=== PATIENT | female | born 1955 | race African-American/Black ===

== ENCOUNTER 2018-12-30 16:29 | Emergency (ER) | payer OTHER ==
[~2018-12-30] VITALS: Ht 167.6 cm; Wt 95.0 kg
[~2018-12-30 16:29] MED LIST: ALBU18HF2 IH; ASPI-864 PO; CYCL5TAB PO; DOCU-150 PO; FLUT16SP15 BOTHNSTRLS; FURO20TA4 PO; GABA-290 PO; HYDR-3933 PO; LORA10TA7 PO; MELO-106 PO; OMEP20CA5 PO; OMEP20TA2 PO; OXYB5TAB11 PO; POTA10CA42 PO; POTA10TA15 PO; SERT-112 PO; SIMV40TA5 PO; SITA50TA3 PO; TRAZ-251 PO
[2018-12-30] MEDS ORDERED: MORPHINE SULFATE 4 MG/ML CPJ (NOT FOR IM USE) IV STA (17:41)
[2018-12-30] MEDS ORDERED: ONDANSETRON HCL 4MG/2ML INJ IV STA (17:41)
[2018-12-30 18:33] LABS: BASOPHILS % 0.9 % (0.0-2.0); EOSINOPHILS % 2.3 % (0.0-5.0); HEMATOCRIT. 37.8 % (36.0-48.0); HEMOGLOBIN. 12.3 g/dL (12.0-16.0); LYMPHOCYTES % 29.2 % (20.0-50.0); MEAN CORPUSCULAR HEMOGLOBIN 28.1 pg (28.0-32.0); MEAN CORPUSCULAR VOLUME 86.9 fL (81.0-99.0); MEAN PLATELET VOLUME 10.9 fl (7.4-10.4); MONOCYTES % 11.3 % (2.0-8.0); NEUTROPHILS % 56.3 % (40.0-76.0); PLATELET 133 x1000/uL (130-400); RED BLOOD CELL COUNT 4.35 mill/uL (4.2-5.4); RED CELL DISTRIBUTION WIDTH 14.1 % (11.6-14.6)
[2018-12-30 18:39] LABS: CHLORIDE 110 mEq/L (98-107)
[2018-12-30 18:42] LABS: PARTIAL THROMBOPLASTIN TIME 28.9 sec (23.4-31.0); PROTHROMBIN TIME 10.5 sec (9.6-11.0)
[2018-12-30 18:44] LABS: ETHANOL BLOOD < 10 mg/dL
[2018-12-31] VITALS: BP 125/71
== END 2018-12-31 00:12 | disposition short-term general hospital (02) ==
LOC: ER 16:29 → EDBEDREQSVC 20:53 → EDBEDREQ 20:53 → EDBEDREQTM 20:53 → ER 12-31 00:12 → CANBEDREQ 12-31 01:17
DX: M25.551 Pain in right hip (principal); J45.909 Unspecified asthma, uncomplicated; E11.9 Type 2 diabetes mellitus without complications; I10 Essential (primary) hypertension; E78.00 Pure hypercholesterolemia, unspecified; W05.0XXA Fall from non-moving wheelchair, initial encounter; Y93.89 Activity, other specified; Y92.9 Unspecified place or not applicable; Z88.2 Allergy status to sulfonamides; Z79.82 Long term (current) use of aspirin
CPT/HCPCS: 36415; 71045; 72192; 73502; 73700; 80053; 80320; 83690; 83880; 84484; 85025; 85610; 85730; 93005; 96374; 96375; 99285; J2270; J2405; G0480

== ENCOUNTER 2020-11-15 17:16 | Emergency (ER) | payer OTHER ==
[~2020-11-15] VITALS: Ht 167.6 cm; Wt 73.0 kg
[~2020-11-15 17:16] MED LIST changes: +OMEP20CA14 PO; -OMEP20CA5 PO; -OXYB5TAB11 PO; +OXYB5TAB16 PO; +SIMV-46 PO; -SIMV40TA5 PO
[2020-11-15] MEDS ORDERED: SODIUM CHLORIDE 0.9% 1,000 ML IV ONE (17:45)
[2020-11-15] MEDS ORDERED: PIPERACILLIN/TAZOBACTAM 3.375GM/50ML PREMIX IV ONE (17:45)
[2020-11-15 18:56] LABS: BASOPHILS % 0.8 % (0.0-2.0); EOSINOPHILS % 0.4 % (0.0-5.0); HEMATOCRIT. 40.4 % (36.0-48.0); HEMOGLOBIN. 13.6 g/dL (12.0-16.0); LYMPHOCYTES % 11.5 % (20.0-50.0); MEAN CORPUSCULAR VOLUME 86.3 fL (81.0-99.0); MONOCYTES % 11.2 % (2.0-8.0); NEUTROPHILS % 76.1 % (40.0-76.0); PLATELET 117 x1000/uL (130-400); RED BLOOD CELL COUNT 4.69 mill/uL (4.2-5.4); RED CELL DISTRIBUTION WIDTH 13.6 % (11.6-14.6)
[2020-11-15 19:05] LABS: CHLORIDE 100 mEq/L (98-107)
[2020-11-15] MEDS ORDERED: MORPHINE SULFATE 4 MG/ML CPJ (NOT FOR IM USE) IV ONE (20:00)
[2020-11-15] MEDS ORDERED: LACTATED RINGERS 1,000 ML IV SCH (20:00)
[2020-11-15] MEDS ORDERED: INSULIN REGULAR (HUMULIN R) 300UNITS/3ML VIAL IV ONE (20:15)
[2020-11-15] MEDS ORDERED: IOHEXOL-300 100 ML BOTTLE ONE (21:25)
[2020-11-16 02:00] VITALS: BP 117/66
== END 2020-11-16 02:40 | disposition short-term general hospital (02) ==
LOC: ER 17:16 → CANBEDREQ 11-16 00:02 → ER 11-16 02:40
DX: A41.9 Sepsis, unspecified organism (principal); K61.1 Rectal abscess; L03.311 Cellulitis of abdominal wall; D72.829 Elevated white blood cell count, unspecified; R10.9 Unspecified abdominal pain; J45.909 Unspecified asthma, uncomplicated; J44.9 Chronic obstructive pulmonary disease, unspecified; E11.9 Type 2 diabetes mellitus without complications; I10 Essential (primary) hypertension; E78.00 Pure hypercholesterolemia, unspecified; Z88.2 Allergy status to sulfonamides; Z79.82 Long term (current) use of aspirin
CPT/HCPCS: 36415; 71045; 74177; 80053; 82962; 83605; 83690; 84484; 85025; 85610; 87040; 96361; 96365; 96375; 99285; J1815; J2270; J2543; J7030; Q9967

== ENCOUNTER 2021-02-12 15:37 | Inpatient (IN) | payer OTHER ==
[~2021-02-12] VITALS: Ht 157.5 cm; Wt 79.5 kg
[2021-02-12] MEDS ORDERED: MORPHINE SULFATE 4 MG/ML CPJ (NOT FOR IM USE) IV STA (16:26)
[2021-02-12] MEDS ORDERED: ONDANSETRON HCL 4MG/2ML INJ IV STA (16:26)
[2021-02-12] MEDS ORDERED: SODIUM CHLORIDE 0.9% 1,000 ML IV ONE (16:30)
[2021-02-12] MEDS ORDERED: MORPHINE SULFATE 2 MG/ML CPJ (NOT FOR IM USE) IV NR (16:45)
[2021-02-12 16:51] LABS: BASOPHILS % 0.6 % (0.0-2.0); EOSINOPHILS % 0.3 % (0.0-5.0); HEMATOCRIT. 37.4 % (36.0-48.0); HEMOGLOBIN. 12.3 g/dL (12.0-16.0); LYMPHOCYTES % 17.8 % (20.0-50.0); MEAN CORPUSCULAR HEMOGLOBIN 28.3 pg (28.0-32.0); MEAN CORPUSCULAR VOLUME 86.2 fL (81.0-99.0); MEAN PLATELET VOLUME 10.6 fl (7.4-10.4); MONOCYTES % 7.9 % (2.0-8.0); NEUTROPHILS % 73.4 % (40.0-76.0); PLATELET 150 x1000/uL (130-400); RED BLOOD CELL COUNT 4.35 mill/uL (4.2-5.4); RED CELL DISTRIBUTION WIDTH 13.3 % (11.6-14.6)
[2021-02-12 16:56] LABS: CHLORIDE 110 mEq/L (98-107)
[2021-02-12 17:02] LABS: PARTIAL THROMBOPLASTIN TIME 24.8 sec (23.4-31.0); PROTHROMBIN TIME 11.1 sec (9.6-11.0)
[2021-02-12 18:01] LABS: CLARITY URINE CLOUDY (CLEAR); COLOR URINE DARK YELLOW (YELLOW); KETONES URINE TRACE (NEGATIVE); LEUKOCYTE ESTERASE URINE NEGATIVE (NEGATIVE); NITRITE URINE NEGATIVE (NEGATIVE); OCCULT BLOOD URINE NEGATIVE (NEGATIVE); PROTEIN URINE 1+ (NEGATIVE); SPECIFIC GRAVITY URINE 1.039 (1.005-1.030)
[2021-02-12] MEDS ORDERED: METRONIDAZOLE 500 MG PREMIX 100 ML IV ONE (19:15)
[2021-02-12] MEDS ORDERED: LEVOFLOXACIN 750MG PREMIX 150 ML IV ONE (19:15)
[2021-02-12] MEDS ORDERED: DEXTROSE 50% WATER 50ML SYRINGE IV PRN (22:30)
[2021-02-12] MEDS ORDERED: INSULIN REGULAR (HUMULIN R) 300UNITS/3ML VIAL IV NR (22:30)
[2021-02-12 23:30] VITALS: BP 118/61
[2021-02-13] VITALS: BP 118/61
[2021-02-13] MEDS ORDERED: IPRATROPIUM/ALBUTEROL 0.5-3(2.5)MG/3ML NEB HHN PRN (00:45)
[2021-02-13] MEDS: MORPHINE SULFATE 2 MG/ML CPJ (NOT FOR IM USE) IV PRN (01:53)
[2021-02-13] MEDS: DEXT 5%/0.45% NACL KCL 20MEQ/L 1,000 ML IV SCH ×3 (02:00→23:43)
[2021-02-13 04:00] VITALS: BP 112/58
[2021-02-13] MEDS: GABAPENTIN 300MG CAPSULE PO SCH ×3 (06:00→22:00)
[2021-02-13 06:28] LABS: CHLORIDE 108 mEq/L (98-107)
[2021-02-13 06:31] LABS: BASOPHILS % 0.5 % (0.0-2.0); EOSINOPHILS % 1.2 % (0.0-5.0); HEMATOCRIT. 35.9 % (36.0-48.0); HEMOGLOBIN. 11.7 g/dL (12.0-16.0); LYMPHOCYTES % 31.2 % (20.0-50.0); MEAN CORPUSCULAR HEMOGLOBIN 28.6 pg (28.0-32.0); MEAN PLATELET VOLUME 11.7 fl (7.4-10.4); MONOCYTES % 9.9 % (2.0-8.0); NEUTROPHILS % 57.2 % (40.0-76.0); PLATELET 130 x1000/uL (130-400); RED BLOOD CELL COUNT 4.08 mill/uL (4.2-5.4); RED CELL DISTRIBUTION WIDTH 13.6 % (11.6-14.6)
[2021-02-13] MEDS ORDERED: BLOOD SUGAR DIAGNOSTIC STRIP TEST SCH (06:40)
[2021-02-13] MEDS: INSULIN LISPRO (MEDIUM DOSE) 100 UNITS/ML SUBCUT SCH ×5 (06:52→22:17)
[2021-02-13 06:53] LABS: AMYLASE 69 IU/L (25-115)
[2021-02-13 08:00] VITALS: BP 110/59
[2021-02-13] MEDS: SERTRALINE HCL 100MG TABLET PO SCH (09:00)
[2021-02-13] MEDS: PANTOPRAZOLE SODIUM 40 MG/VIAL IV SCH (09:20)
[2021-02-13] MEDS: OXYBUTYNIN CHLORIDE 5MG TABLET PO SCH (09:21)
[2021-02-13] MEDS ORDERED: SODIUM CHLORIDE 0.9% 1,000 ML IV SCH (09:30)
[2021-02-13] MEDS ORDERED: CLONIDINE 0.1MG TABLET PO PRN (09:30)
[2021-02-13] MEDS ORDERED: DOCUSATE SODIUM 100MG CAPSULE PO PRN (09:30)
[2021-02-13] MEDS ORDERED: MAGNESIUM/ALUMINUM HYDROXIDE/SIMETHICONE 30ML UDC PO PRN (09:30)
[2021-02-13] MEDS ORDERED: DEXTROSE 50% WATER 50ML SYRINGE IV PRN (09:30)
[2021-02-13] MEDS ORDERED: NALOXONE HCL 0.4MG/ML VIAL IV PRN (09:45)
[2021-02-13] MEDS: HYDROCODONE/ACETAMINOPHEN 5/325MG TABLET PO PRN ×3 (09:47→22:16)
[2021-02-13] MEDS: ENOXAPARIN 40MG/0.4ML SYR SUBCUT SCH (09:57)
[2021-02-13] MEDS ORDERED: INFLUENZA VACCINE 05/PF 0.5 ML SYRINGE IM ONE (10:00)
[2021-02-13] MEDS: BLOOD SUGAR DIAGNOSTIC STRIP TEST SCH ×3 (11:40→21:29)
[2021-02-13 12:00] VITALS: BP 110/59
[2021-02-13 15:29] LABS: *AMPHETAMINES SCREEN URINE NEGATIVE (NEGATIVE); *BARBITURATES SCREEN URINE NEGATIVE (NEGATIVE); *BENZODIAZEPINES SCREEN URINE NEGATIVE (NEGATIVE); *COCAINE SCREEN URINE NEGATIVE (NEGATIVE)
[2021-02-13 15:30] LABS: CANNABINOID URINE SCREEN NEGATIVE (NEGATIVE); METHADONE URINE SCREEN NEGATIVE (NEGATIVE); OPIATES URINE SCREEN PRESUMTIVE POSITIVE (NEGATIVE); PHENCYCLIDINE URINE SCREEN NEGATIVE (NEGATIVE)
[2021-02-13 16:30] VITALS: BP 122/85
[2021-02-13 20:00] VITALS: BP 111/48
[2021-02-13] MEDS: TRAZODONE HCL 50MG TABLET PO SCH (21:00)
[2021-02-13] MEDS ORDERED: INSULIN GLARGINE UD 100 UNITS/ML SYR SUBCUT SCH (22:00)
[2021-02-13] MEDS: ATORVASTATIN CALCIUM 40MG TABLET PO SCH (22:15)
[2021-02-13] MEDS: LEVOFLOXACIN 500MG PREMIX 100 ML IV SCH (22:18)
[2021-02-13] MEDS: INSULIN GLARGINE UD 100 UNITS/ML SYR SUBCUT SCH (22:18)
[2021-02-13] MEDS: ONDANSETRON HCL 4MG/2ML INJ IV PRN (23:52)
[2021-02-14] VITALS: BP 137/116
[2021-02-14 04:00] VITALS: BP 117/55
[2021-02-14] MEDS: GABAPENTIN 300MG CAPSULE PO SCH ×3 (06:40→21:13)
[2021-02-14] MEDS: INSULIN LISPRO (MEDIUM DOSE) 100 UNITS/ML SUBCUT SCH ×4 (06:41→21:00)
[2021-02-14] MEDS: BLOOD SUGAR DIAGNOSTIC STRIP TEST SCH ×4 (06:41→21:00)
[2021-02-14] MEDS: PANTOPRAZOLE SODIUM 40 MG/VIAL IV SCH (09:20)
[2021-02-14] MEDS: OXYBUTYNIN CHLORIDE 5MG TABLET PO SCH (09:21)
[2021-02-14] MEDS: DEXT 5%/0.45% NACL KCL 20MEQ/L 1,000 ML IV SCH ×2 (09:21→19:00)
[2021-02-14] MEDS: HYDROCODONE/ACETAMINOPHEN 10/325MG TABLET PO PRN ×2 (09:21→15:48)
[2021-02-14] MEDS: SERTRALINE HCL 100MG TABLET PO SCH (09:21)
[2021-02-14] MEDS: ENOXAPARIN 40MG/0.4ML SYR SUBCUT SCH (09:24)
[2021-02-14] MEDS: INSULIN GLARGINE UD 100 UNITS/ML SYR SUBCUT SCH ×2 (09:25→21:25)
[2021-02-14 12:00] VITALS: BP 113/61
[2021-02-14] MEDS: ONDANSETRON HCL 4MG/2ML INJ IV PRN (13:04)
[2021-02-14 16:00] VITALS: BP 114/58
[2021-02-14 19:59] VITALS: BP 141/65
[2021-02-14] MEDS: TRAZODONE HCL 50MG TABLET PO SCH (21:13)
[2021-02-14] MEDS: ATORVASTATIN CALCIUM 40MG TABLET PO SCH (21:13)
[2021-02-14] MEDS: LEVOFLOXACIN 500MG PREMIX 100 ML IV SCH (21:28)
[2021-02-15] VITALS: BP 167/50
[2021-02-15] MEDS: DEXT 5%/0.45% NACL KCL 20MEQ/L 1,000 ML IV SCH ×2 (03:20→11:27)
[2021-02-15 04:00] VITALS: BP 107/42
[2021-02-15] MEDS: GABAPENTIN 300MG CAPSULE PO SCH ×2 (06:21→14:30)
[2021-02-15] MEDS: INSULIN LISPRO (MEDIUM DOSE) 100 UNITS/ML SUBCUT SCH ×2 (06:22→13:33)
[2021-02-15] MEDS: BLOOD SUGAR DIAGNOSTIC STRIP TEST SCH ×2 (06:22→12:09)
[2021-02-15 07:45] LABS: CHLORIDE 108 mEq/L (98-107)
[2021-02-15 08:00] VITALS: BP 100/56
[2021-02-15] MEDS ORDERED: FAMOTIDINE 20MG/2ML VIAL IV SCH (09:00)
[2021-02-15] MEDS: ENOXAPARIN 40MG/0.4ML SYR SUBCUT SCH (09:11)
[2021-02-15] MEDS: OXYBUTYNIN CHLORIDE 5MG TABLET PO SCH (09:12)
[2021-02-15] MEDS: SERTRALINE HCL 100MG TABLET PO SCH (09:12)
[2021-02-15 09:17] LABS: BASOPHILS % 0.4 % (0.0-2.0); EOSINOPHILS % 2.1 % (0.0-5.0); HEMOGLOBIN. 12.4 g/dL (12.0-16.0); LYMPHOCYTES % 30.6 % (20.0-50.0); MEAN CORPUSCULAR HEMOGLOBIN 28.4 pg (28.0-32.0); MEAN CORPUSCULAR VOLUME 89.5 fL (81.0-99.0); MEAN PLATELET VOLUME 10.6 fl (7.4-10.4); MONOCYTES % 10.4 % (2.0-8.0); NEUTROPHILS % 56.5 % (40.0-76.0); PLATELET 120 x1000/uL (130-400); RED BLOOD CELL COUNT 4.36 mill/uL (4.2-5.4); RED CELL DISTRIBUTION WIDTH 13.2 % (11.6-14.6)
[2021-02-15] MEDS: INSULIN GLARGINE UD 100 UNITS/ML SYR SUBCUT SCH (11:26)
[2021-02-15 12:00] VITALS: BP 112/38
[2021-02-15] MEDS: MORPHINE SULFATE 2 MG/ML CPJ (NOT FOR IM USE) IV PRN (12:23)
[2021-02-15 14:09] VITALS: BP 112/38
== END 2021-02-15 15:15 | disposition home or self-care (01) | DRG 48 ==
LOC: ER 15:37 → EDBEDREQTM 21:26 → EDBEDREQ 21:26 → ENRESERV 21:49 → 7EST 23:33 → 7WST 02-14 15:55 → 7EST 02-14 23:10
PROVIDERS: ADMIT Internal Medicine; ATTEND Internal Medicine
DX: G90.8 Other disorders of autonomic nervous system (principal); K85.90 Acute pancreatitis without necrosis or infection, unspecified; I50.32 Chronic diastolic (congestive) heart failure; I11.0 Hypertensive heart disease with heart failure; K52.9 Noninfective gastroenteritis and colitis, unspecified; E11.65 Type 2 diabetes mellitus with hyperglycemia; E78.00 Pure hypercholesterolemia, unspecified; J44.9 Chronic obstructive pulmonary disease, unspecified; G47.33 Obstructive sleep apnea (adult) (pediatric); K21.9 Gastro-esophageal reflux disease without esophagitis; Z20.822 Contact with and (suspected) exposure to COVID-19; E66.01 Morbid (severe) obesity due to excess calories; F32.A Depression, unspecified; E78.5 Hyperlipidemia, unspecified; Z88.2 Allergy status to sulfonamides; Z79.84 Long term (current) use of oral hypoglycemic drugs; Z79.899 Other long term (current) drug therapy; Z79.82 Long term (current) use of aspirin; Z68.32 Body mass index [BMI] 32.0-32.9, adult
CPT/HCPCS: 36415; 71045; 74176; 80048; 80053; 80305; 81003; 82150; 82962; 83036; 83880; 84443; 84484; 85025; 87426; 90686; 93005; 93306; 93970; 99285; C9113; J1650; J1815; J1956; J2270; J2405; J3490; J7030; J7040; A4315

== ENCOUNTER 2022-03-01 15:03 | Emergency (ER) | payer MEDICARE, OTHER ==
[~2022-03-01] VITALS: Ht 160 cm; Wt 65.0 kg
[~2022-03-01 15:03] MED LIST changes: -CYCL5TAB PO; -MELO-106 PO; -OMEP20CA14 PO; -OMEP20TA2 PO; +OMEP20TA23 PO; -POTA10TA15 PO
[2022-03-01] MEDS ORDERED: DEXTROSE 50% WATER 50ML SYRINGE IV PRN (16:00)
[2022-03-01 16:30] LABS: BASOPHILS % 0.3 % (0.0-2.0); HEMATOCRIT. 41.1 % (36.0-48.0); HEMOGLOBIN. 13.2 g/dL (12.0-16.0); LYMPHOCYTES % 19.4 % (20.0-50.0); MEAN CORPUSCULAR HEMOGLOBIN 28.7 pg (28.0-32.0); MEAN CORPUSCULAR VOLUME 89.5 fL (81.0-99.0); MEAN PLATELET VOLUME 11.3 fl (7.4-10.4); MONOCYTES % 6.7 % (2.0-8.0); NEUTROPHILS % 73.6 % (40.0-76.0); PLATELET 151 x1000/uL (130-400); RED BLOOD CELL COUNT 4.59 mill/uL (4.2-5.4); RED CELL DISTRIBUTION WIDTH 14.3 % (11.6-14.6)
[2022-03-01 16:32] LABS: CLARITY URINE CLEAR (CLEAR); COLOR URINE DARK YELLOW (YELLOW); KETONES URINE TRACE (NEGATIVE); LEUKOCYTE ESTERASE URINE NEGATIVE (NEGATIVE); NITRITE URINE NEGATIVE (NEGATIVE); OCCULT BLOOD URINE NEGATIVE (NEGATIVE); PH URINE 5.5 (4.5-8.0); PROTEIN URINE 1+ (NEGATIVE); SPECIFIC GRAVITY URINE 1.024 (1.005-1.030)
[2022-03-01 16:39] LABS: CHLORIDE 105 mEq/L (98-107)
[2022-03-01 16:45] LABS: *AMPHETAMINES SCREEN URINE NEGATIVE (NEGATIVE); *BARBITURATES SCREEN URINE NEGATIVE (NEGATIVE); *BENZODIAZEPINES SCREEN URINE NEGATIVE (NEGATIVE); *COCAINE SCREEN URINE PRESUMTIVE POSITIVE (NEGATIVE); CANNABINOID URINE SCREEN NEGATIVE (NEGATIVE); METHADONE URINE SCREEN NEGATIVE (NEGATIVE); OPIATES URINE SCREEN NEGATIVE (NEGATIVE); PHENCYCLIDINE URINE SCREEN NEGATIVE (NEGATIVE)
[2022-03-01 16:55] LABS: ETHANOL BLOOD < 10 mg/dL
[2022-03-01 22:55] VITALS: BP 135/75
== END 2022-03-02 01:17 | disposition home or self-care (01) ==
LOC: ER 15:14
DX: E11.649 Type 2 diabetes mellitus with hypoglycemia without coma (principal); F14.10 Cocaine abuse, uncomplicated; I10 Essential (primary) hypertension; E78.00 Pure hypercholesterolemia, unspecified; Z20.822 Contact with and (suspected) exposure to COVID-19; Z79.4 Long term (current) use of insulin; Z79.82 Long term (current) use of aspirin; Z88.2 Allergy status to sulfonamides
CPT/HCPCS: 36415; 70450; 71045; 80053; 80305; 80307; 80320; 80329; 81003; 82962; 84443; 85025; 87426; 99284; C9803; G0480

== ENCOUNTER 2023-11-17 19:02 | Inpatient (IN) | payer OTHER, MEDICAID, MEDICARE ==
[~2023-11-17] VITALS: Ht 157.5 cm; Wt 59.9 kg
[~2023-11-17 19:02] MED LIST changes: -OXYB5TAB16 PO; +OXYB5TAB21 PO; -POTA10CA42 PO; +POTA10CA83 PO
[2023-11-17 20:03] LABS: BASOPHILS % 0.7 % (0.0-2.0); EOSINOPHILS % 0.1 % (0.0-5.0); HEMATOCRIT. 39.4 % (36.0-48.0); HEMOGLOBIN. 12.6 g/dL (12.0-16.0); MEAN CORPUSCULAR HEMOGLOBIN 28.5 pg (28.0-32.0); MEAN CORPUSCULAR VOLUME 89.1 fL (81.0-99.0); MEAN PLATELET VOLUME 10.6 fl (7.4-10.4); MONOCYTES % 6.7 % (2.0-8.0); NEUTROPHILS % 79.5 % (40.0-76.0); PLATELET 133 x1000/uL (130-400); RED BLOOD CELL COUNT 4.43 mill/uL (4.2-5.4); RED CELL DISTRIBUTION WIDTH 13.3 % (11.6-14.6); WHITE BLOOD COUNT 10.2 x1000/uL (4.5-11.0)
[2023-11-17 20:04] LABS: CHLORIDE 108 mEq/L (98-107); POTASSIUM 3.8 mEq/L (3.5-5.1); SODIUM 141 mEq/L (136-145)
[2023-11-17 20:05] LABS: CALCIUM 9.3 mg/dL (8.7-10.4); CARBON DIOXIDE 27 mEq/L (21-32)
[2023-11-17 20:10] LABS: CREATININE 0.8 mg/dL (0.6-1.0); GLUCOSE 90 mg/dL (70-105); UREA NITROGEN BLOOD 8 mg/dL (9-23)
[2023-11-17 20:11] LABS: TROPONIN I HIGH SENSITIVITY 8 ng/L (3.0-34)
[2023-11-17 20:22] LABS: ETHANOL BLOOD < 10 mg/dL (<10)
[2023-11-17 23:14] LABS: *AMPHETAMINES SCREEN URINE NEGATIVE (NEGATIVE); *BARBITURATES SCREEN URINE NEGATIVE (NEGATIVE); *BENZODIAZEPINES SCREEN URINE NEGATIVE (NEGATIVE); *COCAINE SCREEN URINE PRESUMPTIVE POSITIVE (NEGATIVE)
[2023-11-17 23:15] LABS: CANNABINOID URINE SCREEN NEGATIVE (NEGATIVE); ECSTASY MDMA SCREEN URINE NEGATIVE (NEGATIVE); METHADONE URINE SCREEN NEGATIVE (NEGATIVE); OPIATES URINE SCREEN NEGATIVE (NEGATIVE); PHENCYCLIDINE URINE SCREEN NEGATIVE (NEGATIVE)
[2023-11-18 15:55] VITALS: BP 114/88; PULSE 76; PULSE 77; RESP 16; RESP 20; TEMP 97.8
[2023-11-18 16:00] VITALS: BP 113/70; PULSE 71; RESP 19
[2023-11-18] MEDS ORDERED: ACETAMINOPHEN 325MG TABLET PO PRN (18:30)
[2023-11-18] MEDS ORDERED: CLONIDINE 0.1MG TABLET PO PRN (18:30)
[2023-11-18] MEDS ORDERED: ONDANSETRON HCL 4MG/2ML INJ IV PRN (18:30)
[2023-11-18] MEDS ORDERED: DEXTROSE 50% WATER 50ML SYRINGE IV PRN (18:45)
[2023-11-18] MEDS: INSULIN LISPRO 100 UNITS/ML SUBCUT SCH (19:15)
[2023-11-18 20:00] VITALS: BP 126/73; PULSE 77; RESP 20; TEMP 98.1
[2023-11-18] MEDS: BLOOD SUGAR DIAGNOSTIC STRIP TEST SCH ×2 (21:55)
[2023-11-18] MEDS: INSULIN GLARGINE 100 UNITS/ML SUBCUT SCH (21:56)
[2023-11-18 22:25] LABS: TROPONIN I HIGH SENSITIVITY 9 ng/L (3.0-34)
[2023-11-19] VITALS: BP 101/71; RESP 19; TEMP 98.4
[2023-11-19] MEDS: SODIUM CHLORIDE 0.9% 1,000 ML IV SCH (00:48)
[2023-11-19 04:00] VITALS: BP 141/65; PULSE 70; TEMP 98.2
[2023-11-19 07:53] LABS: CARBON DIOXIDE 27 mEq/L (21-32); CHLORIDE 106 mEq/L (98-107); POTASSIUM 4.4 mEq/L (3.5-5.1); SODIUM 138 mEq/L (136-145)
[2023-11-19 07:59] LABS: GLUCOSE 147 mg/dL (70-105)
[2023-11-19 08:00] VITALS: BP 127/73; PULSE 81; RESP 15; TEMP 98.7
[2023-11-19 08:00] LABS: LDL CHOLESTEROL 86 mg/dL (5-100); TRIGLYCERIDE 87 mg/dL (0-150); UREA NITROGEN BLOOD 11 mg/dL (9-23)
[2023-11-19 08:01] LABS: CHOLESTEROL 156 mg/dL (<200); HDL CHOLESTEROL 57 mg/dL (>65)
[2023-11-19 09:17] LABS: BASOPHILS % 0.5 % (0.0-2.0); EOSINOPHILS % 1.4 % (0.0-5.0); HEMATOCRIT. 38.5 % (36.0-48.0); HEMOGLOBIN. 12.4 g/dL (12.0-16.0); LYMPHOCYTES % 34.8 % (20.0-50.0); MEAN CORPUSCULAR HEMOGLOBIN 28.2 pg (28.0-32.0); MEAN CORPUSCULAR HGB CONC 32.2 g/dL (31.0-37.0); MEAN CORPUSCULAR VOLUME 87.7 fL (81.0-99.0); MEAN PLATELET VOLUME 11.4 fl (7.4-10.4); MONOCYTES % 11.8 % (2.0-8.0); NEUTROPHILS % 51.5 % (40.0-76.0); PLATELET 128 x1000/uL (130-400); RED BLOOD CELL COUNT 4.38 mill/uL (4.2-5.4); RED CELL DISTRIBUTION WIDTH 13.3 % (11.6-14.6); WHITE BLOOD COUNT 7.9 x1000/uL (4.5-11.0)
[2023-11-19] MEDS: FUROSEMIDE 20MG TABLET PO SCH (09:29)
[2023-11-19] MEDS: ASPIRIN 81MG EC TABLET PO SCH (09:29)
[2023-11-19] MEDS: SERTRALINE HCL 100MG TABLET PO SCH (09:29)
[2023-11-19] MEDS: ENOXAPARIN 40MG/0.4ML SYR SUBCUT SCH (09:30)
[2023-11-19 12:00] VITALS: BP 152/77; PULSE 67; RESP 19; TEMP 98.9
[2023-11-19 16:00] VITALS: BP 149/79; PULSE 68; RESP 18; TEMP 98.7
[2023-11-19 16:26] VITALS: BP 149/79; PULSE 68; TEMP 98.7; O2SAT 98
[2023-11-19] MEDS ORDERED: TRAZODONE HCL 50MG TABLET PO SCH (17:00)
[2023-11-22] MEDS ORDERED: LANTUSUD SUBCUT (10:59)
== END 2023-11-19 17:25 | disposition home or self-care (01) | DRG 637 ==
LOC: ER 19:02 → 5WST 22:02 → EDBEDREQ 22:05 → EDBEDREQTM 22:05 → 5WST 11-18 00:09 → 3WST 11-18 15:28
PROVIDERS: ADMIT Internal Medicine; ATTEND Internal Medicine
DX: E11.649 Type 2 diabetes mellitus with hypoglycemia without coma (principal); G93.41 Metabolic encephalopathy; F10.21 Alcohol dependence, in remission; F14.10 Cocaine abuse, uncomplicated; I10 Essential (primary) hypertension; F17.210 Nicotine dependence, cigarettes, uncomplicated; E78.00 Pure hypercholesterolemia, unspecified; Z88.2 Allergy status to sulfonamides; Z91.148 Patient's other noncompliance with medication regimen for other reason
CPT/HCPCS: 36415; 71045; 76700; 80048; 80061; 80305; 80320; 82962; 83036; 83880; 84484; 85025; 93005; 93970; 99285; J1650; J1815; J7030; G0480

== ENCOUNTER 2023-12-12 01:21 | Emergency (ER) | payer BC, MEDICAID ==
[~2023-12-12] VITALS: Ht 162.6 cm; Wt 78.0 kg
[~2023-12-12 01:21] MED LIST changes: -HYDR-3933 PO; +LANTUSUD SUBCUT; +METF-414 MT
[2023-12-12 01:25] VITALS: O2SAT 100
[2023-12-12 02:03] LABS: CLARITY URINE CLEAR (CLEAR); COLOR URINE YELLOW (YELLOW); GLUCOSE URINE NEGATIVE (NEGATIVE); KETONES URINE NEGATIVE (NEGATIVE); LEUKOCYTE ESTERASE URINE NEGATIVE (NEGATIVE); NITRITE URINE NEGATIVE (NEGATIVE); OCCULT BLOOD URINE NEGATIVE (NEGATIVE); PROTEIN URINE NEGATIVE (NEGATIVE); SPECIFIC GRAVITY URINE 1.007 (1.005-1.030)
[2023-12-12 02:06] LABS: CHLORIDE 107 mEq/L (98-107); POTASSIUM 3.8 mEq/L (3.5-5.1); SODIUM 139 mEq/L (136-145)
[2023-12-12 02:07] LABS: CALCIUM 9.8 mg/dL (8.7-10.4); CARBON DIOXIDE 26 mEq/L (21-32)
[2023-12-12 02:12] LABS: *AMPHETAMINES SCREEN URINE NEGATIVE (NEGATIVE); *BARBITURATES SCREEN URINE NEGATIVE (NEGATIVE); *BENZODIAZEPINES SCREEN URINE NEGATIVE (NEGATIVE); *COCAINE SCREEN URINE NEGATIVE (NEGATIVE); CREATININE 0.9 mg/dL (0.6-1.0); METHADONE URINE SCREEN NEGATIVE (NEGATIVE); OPIATES URINE SCREEN NEGATIVE (NEGATIVE); UREA NITROGEN BLOOD 14 mg/dL (9-23)
[2023-12-12 02:13] LABS: CANNABINOID URINE SCREEN NEGATIVE (NEGATIVE); ECSTASY MDMA SCREEN URINE NEGATIVE (NEGATIVE); INR 0.9; PHENCYCLIDINE URINE SCREEN NEGATIVE (NEGATIVE); PROTHROMBIN TIME 10.4 sec (9.6-11.0)
[2023-12-12 02:14] LABS: ALANINE AMINOTRANSFERASE 51 IU/L (10-49); ALBUMIN 4.1 g/dL (3.2-4.8); ASPARTATE AMINOTRANSFERASE 42 IU/L (<34); BILIRUBIN DIRECT 0.2 mg/dL (<=3.0)
[2023-12-12 02:15] LABS: BILIRUBIN TOTAL 0.4 mg/dL (0.1-1.0); PROTEIN TOTAL 7.2 g/dL (6.0-8.3)
[2023-12-12 02:18] LABS: BASOPHILS % 0.8 % (0.0-2.0); DIFFERENTIAL COMMENT 0; EOSINOPHILS % 1.4 % (0.0-5.0); ETHANOL BLOOD < 10 mg/dL (<10); HEMATOCRIT. 38.2 % (36.0-48.0); HEMOGLOBIN. 12.1 g/dL (12.0-16.0); LYMPHOCYTES % 28.5 % (20.0-50.0); MEAN CORPUSCULAR HEMOGLOBIN 28.6 pg (28.0-32.0); MEAN CORPUSCULAR HGB CONC 31.7 g/dL (31.0-37.0); MEAN CORPUSCULAR VOLUME 90.1 fL (81.0-99.0); MEAN PLATELET VOLUME 10.7 fl (7.4-10.4); MONOCYTES % 13.8 % (2.0-8.0); NEUTROPHILS % 55.5 % (40.0-76.0); PLATELET 125 x1000/uL (130-400); RED BLOOD CELL COUNT 4.24 mill/uL (4.2-5.4); RED CELL DISTRIBUTION WIDTH 14.2 % (11.6-14.6); WHITE BLOOD COUNT 6.7 x1000/uL (4.5-11.0)
[2023-12-12 02:21] LABS: GLUCOSE 44 mg/dL (70-105)
[2023-12-12] MEDS: DEXTROSE 50% WATER 50ML SYRINGE IV ONE (02:35)
[2023-12-12 05:15] VITALS: BP 112/54; PULSE 76; RESP 14; O2SAT 99
== END 2023-12-12 05:16 | disposition home or self-care (01) ==
LOC: ER 01:21
DX: E11.649 Type 2 diabetes mellitus with hypoglycemia without coma (principal); E78.00 Pure hypercholesterolemia, unspecified; I10 Essential (primary) hypertension; Z79.899 Other long term (current) drug therapy; Z88.2 Allergy status to sulfonamides
CPT/HCPCS: 36415; 80048; 80076; 80305; 80320; 81003; 82962; 85025; 96374; 99283; G0480

== ENCOUNTER 2024-02-11 01:31 | Inpatient (IN) | payer BC, MEDICAID, MEDICARE ==
[~2024-02-11] VITALS: Ht 167.6 cm; Wt 68.9 kg
[~2024-02-11 01:31] MED LIST changes: -POTA10CA83 PO; +POTA10CA93 PO
[2024-02-11] MEDS: DEXTROSE 5% WATER 1,000 ML IV STA (03:07)
[2024-02-11 03:21] LABS: BASOPHILS % 0.3 % (0.0-2.0); EOSINOPHILS % 0.2 % (0.0-5.0); HEMATOCRIT. 29.1 % (36.0-48.0); HEMOGLOBIN. 8.9 g/dL (12.0-16.0); LYMPHOCYTES % 11.1 % (20.0-50.0); MEAN CORPUSCULAR HEMOGLOBIN 27.4 pg (28.0-32.0); MEAN CORPUSCULAR HGB CONC 30.6 g/dL (31.0-37.0); MEAN CORPUSCULAR VOLUME 89.6 fL (81.0-99.0); MEAN PLATELET VOLUME 10.4 fl (7.4-10.4); MONOCYTES % 7.3 % (2.0-8.0); NEUTROPHILS % 81.1 % (40.0-76.0); PLATELET 94 x1000/uL (130-400); RED BLOOD CELL COUNT 3.25 mill/uL (4.2-5.4); RED CELL DISTRIBUTION WIDTH 13.6 % (11.6-14.6); WHITE BLOOD COUNT 9.3 x1000/uL (4.5-11.0)
[2024-02-11 03:26] LABS: CHLORIDE 120 mEq/L (98-107); POTASSIUM 5.1 mEq/L (3.5-5.1); SODIUM 143 mEq/L (136-145)
[2024-02-11 03:27] LABS: CARBON DIOXIDE 19 mEq/L (21-32)
[2024-02-11 03:32] LABS: UREA NITROGEN BLOOD 15 mg/dL (9-23)
[2024-02-11 03:33] LABS: TROPONIN I HIGH SENSITIVITY 8 ng/L (3.0-34)
[2024-02-11 03:34] LABS: ALANINE AMINOTRANSFERASE 27 IU/L (10-49); ALBUMIN 2.8 g/dL (3.2-4.8); ASPARTATE AMINOTRANSFERASE 67 IU/L (<34); BILIRUBIN TOTAL 0.2 mg/dL (0.1-1.0); PROTEIN TOTAL 5.4 g/dL (6.0-8.3)
[2024-02-11 03:45] LABS: CREATININE 0.5 mg/dL (0.6-1.0)
[2024-02-11 03:46] LABS: BILIRUBIN DIRECT < 0.1 mg/dL (<=3.0)
[2024-02-11 03:49] LABS: GLUCOSE 30 mg/dL (70-105)
[2024-02-11 03:50] LABS: CALCIUM 5.4 mg/dL (8.7-10.4)
[2024-02-11 05:38] LABS: TROPONIN I HIGH SENSITIVITY 12 ng/L (3.0-34)
[2024-02-11 06:00] VITALS: BP 122/85; PULSE 106; RESP 18; TEMP 37.16964; O2SAT 98
[2024-02-11] MEDS ORDERED: DOCUSATE SODIUM 100MG CAPSULE PO PRN (07:45)
[2024-02-11] MEDS ORDERED: IPRATROPIUM/ALBUTEROL 0.5-3(2.5)MG/3ML NEB NEB PRN (07:45)
[2024-02-11] MEDS ORDERED: ONDANSETRON HCL 4MG/2ML INJ IV PRN (07:45)
[2024-02-11] MEDS ORDERED: DEXTROSE 50% WATER 50ML SYRINGE IV PRN (07:45)
[2024-02-11] MEDS ORDERED: CLONIDINE 0.1MG TABLET PO PRN (07:45)
[2024-02-11] MEDS ORDERED: ZOLPIDEM TARTRATE 5MG TABLET PO PRN (07:45)
[2024-02-11] MEDS ORDERED: MAGNESIUM/ALUMINUM HYDROXIDE/SIMETHICONE 30ML UDC PO PRN (07:45)
[2024-02-11] MEDS ORDERED: NITROGLYCERIN 0.4MG TABLET SL SL PRN (07:45)
[2024-02-11] MEDS ORDERED: ACETAMINOPHEN 325MG TABLET PO PRN (07:45)
[2024-02-11] MEDS ORDERED: GUAIFENESIN 200MG/10ML SUGAR FREE UDC PO PRN (07:45)
[2024-02-11] MEDS ORDERED: KETOROLAC 15MG/ML VIAL IV PRN (08:00)
[2024-02-11] MEDS: FAMOTIDINE 20MG TABLET PO SCH (09:51)
[2024-02-11] MEDS: ASPIRIN 81MG EC TABLET PO SCH (09:51)
[2024-02-11] MEDS: ENOXAPARIN 40MG/0.4ML SYR SUBCUT SCH (09:52)
[2024-02-11 09:55] LABS: T4 FREE 1.41 ng/dL (0.89-1.76)
[2024-02-11] MEDS: DEXT 5%/LACTATED RINGERS 1,000 ML IV SCH (09:55)
[2024-02-11 09:56] LABS: THYROID STIMULATING HORMONE 1.71 uIU/mL (0.55-4.78)
[2024-02-11] MEDS: CALCIUM GLUCONATE 1GM PREMIX 50 ML IV SCH (10:22)
[2024-02-11] MEDS: BLOOD SUGAR DIAGNOSTIC STRIP TEST SCH (11:56)
[2024-02-11] MEDS: INSULIN LISPRO 100 UNITS/ML SUBCUT SCH (12:15)
[2024-02-11 12:49] LABS: VITAMIN B12 SERUM 424 pg/mL (211-911)
[2024-02-11 14:05] VITALS: BP 114/58; PULSE 81; RESP 20; TEMP 36.696
[2024-02-11 14:20] VITALS: BP 114/58; PULSE 81; RESP 20; TEMP 36.6696; O2SAT 100
[2024-02-11 16:00] VITALS: BP 105/54; PULSE 76; RESP 20; TEMP 36.50292; O2SAT 100
[2024-02-11] MEDS: ACETAMINOPHEN 325MG TABLET PO PRN (17:47)
[2024-02-11 18:52] LABS: CREATINE KINASE MB FRACTION 1.2 ng/mL (0.5-3.6)
[2024-02-11 20:30] VITALS: BP 130/67; PULSE 82; RESP 18; TEMP 36.61404; O2SAT 96
[2024-02-11] MEDS: INSULIN GLARGINE 100 UNITS/ML SUBCUT SCH (21:09)
[2024-02-12 00:05] VITALS: BP 123/68; PULSE 88; RESP 18; TEMP 36.50292; O2SAT 100
[2024-02-12 00:08] LABS: CREATINE KINASE MB FRACTION 1.1 ng/mL (0.5-3.6)
[2024-02-12 04:47] VITALS: BP 116/74; PULSE 75; RESP 18; TEMP 36.00288; O2SAT 98
[2024-02-12 05:34] LABS: CHLORIDE 107 mEq/L (98-107); POTASSIUM 4.6 mEq/L (3.5-5.1); SODIUM 137 mEq/L (136-145)
[2024-02-12 05:36] LABS: CALCIUM 9.4 mg/dL (8.7-10.4); CARBON DIOXIDE 27 mEq/L (21-32)
[2024-02-12 05:41] LABS: CREATININE 1.2 mg/dL (0.6-1.0); GLUCOSE 67 mg/dL (70-105)
[2024-02-12 05:42] LABS: UREA NITROGEN BLOOD 21 mg/dL (9-23)
[2024-02-12 05:43] LABS: ALANINE AMINOTRANSFERASE 29 IU/L (10-49); ALBUMIN 3.6 g/dL (3.2-4.8); ASPARTATE AMINOTRANSFERASE 29 IU/L (<34)
[2024-02-12 05:44] LABS: BILIRUBIN TOTAL 0.5 mg/dL (0.1-1.0); PHOSPHORUS 3.3 mg/dL (2.5-4.9); PROTEIN TOTAL 7.1 g/dL (6.0-8.3)
[2024-02-12 08:00] VITALS: BP 127/77; PULSE 80; RESP 18; TEMP 36.50292; O2SAT 98
[2024-02-12 12:00] VITALS: BP 125/68; PULSE 70; RESP 18; TEMP 37.00296; O2SAT 98
[2024-02-12 12:08] LABS: BASOPHILS % 0.6 % (0.0-2.0); DIFFERENTIAL COMMENT 0; EOSINOPHILS % 1.6 % (0.0-5.0); HEMATOCRIT. 39.5 % (36.0-48.0); LYMPHOCYTES % 29.5 % (20.0-50.0); MEAN CORPUSCULAR HEMOGLOBIN 27.4 pg (28.0-32.0); MEAN CORPUSCULAR HGB CONC 31.6 g/dL (31.0-37.0); MEAN CORPUSCULAR VOLUME 86.8 fL (81.0-99.0); MEAN PLATELET VOLUME 10.7 fl (7.4-10.4); MONOCYTES % 12.5 % (2.0-8.0); NEUTROPHILS % 55.8 % (40.0-76.0); PLATELET 139 x1000/uL (130-400); RED BLOOD CELL COUNT 4.55 mill/uL (4.2-5.4); RED CELL DISTRIBUTION WIDTH 13.7 % (11.6-14.6); WHITE BLOOD COUNT 8.7 x1000/uL (4.5-11.0)
[2024-02-12 12:24] LABS: HEMOGLOBIN. 12.5 g/dL (12.0-16.0)
[2024-02-12 16:00] VITALS: BP 120/69; PULSE 70; RESP 18; TEMP 37.2252; O2SAT 98
[2024-02-12 20:06] VITALS: BP 116/78; PULSE 80; RESP 18; TEMP 36.44736; O2SAT 99
[2024-02-13 00:01] VITALS: BP 118/68; PULSE 77; RESP 18; TEMP 36.55848; O2SAT 99
[2024-02-13 04:00] VITALS: BP 116/58; PULSE 80; RESP 18; TEMP 36.50292; O2SAT 99
[2024-02-13 08:00] VITALS: BP 135/79; PULSE 87; RESP 18; TEMP 36.50292; O2SAT 98
[2024-02-13 12:13] VITALS: BP 135/71; PULSE 87; TEMP 97.7; O2SAT 98
== END 2024-02-13 14:54 | disposition home or self-care (01) | DRG 637 ==
LOC: ER 01:31 → 5WST 04:15 → EDBEDREQ 05:12 → EDBEDREQTM 05:12 → 8WST 14:21
PROVIDERS: ADMIT Internal Medicine; ATTEND Internal Medicine
DX: E11.649 Type 2 diabetes mellitus with hypoglycemia without coma (principal); G93.41 Metabolic encephalopathy; E44.0 Moderate protein-calorie malnutrition; E78.00 Pure hypercholesterolemia, unspecified; D63.8 Anemia in other chronic diseases classified elsewhere; E83.52 Hypercalcemia; I10 Essential (primary) hypertension; Z79.4 Long term (current) use of insulin; Z79.84 Long term (current) use of oral hypoglycemic drugs; Z68.24 Body mass index [BMI] 24.0-24.9, adult
CPT/HCPCS: 36415; 71045; 80048; 80053; 80061; 80076; 82550; 82553; 82607; 82962; 83036; 83735; 84100; 84439; 84443; 84484; 85025; 93005; 93306; 93970; 99291; J0610; J1650; J1815; J7070; J7121

== ENCOUNTER 2024-09-01 23:46 | Emergency (ER) | payer MEDICAID ==
[~2024-09-01] VITALS: Ht 162.6 cm; Wt 67.0 kg
[~2024-09-01 23:46] MED LIST changes: -DOCU-150 PO; +DOCU-422 PO; -FURO20TA4 PO; -GABA-290 PO; -LANTUSUD SUBCUT; -LORA10TA7 PO; +MECL-264 PO; -OXYB5TAB21 PO; -POTA10CA93 PO; -SERT-112 PO; -TRAZ-251 PO
[2024-09-01 23:54] VITALS: O2SAT 98
[2024-09-02] MEDS: SODIUM CHLORIDE 0.9% 1,000 ML IV ONE ×2 (00:30→04:02)
[2024-09-02 03:16] LABS: CLARITY URINE CLEAR (CLEAR); COLOR URINE YELLOW (YELLOW); GLUCOSE URINE 3+ (NEGATIVE); KETONES URINE NEGATIVE (NEGATIVE); LEUKOCYTE ESTERASE URINE NEGATIVE (NEGATIVE); NITRITE URINE NEGATIVE (NEGATIVE); OCCULT BLOOD URINE NEGATIVE (NEGATIVE); PH URINE 5.5 (4.5-8.0); PROTEIN URINE NEGATIVE (NEGATIVE); SPECIFIC GRAVITY URINE 1.026 (1.005-1.030)
[2024-09-02 03:47] LABS: SQUAMOUS EPITHELIAL CELL URINE FEW /lpf (RARE/1+); WBC URINE 0-2 /hpf (0-2)
[2024-09-02 03:48] LABS: BACTERIA URINE NONE SEEN; RBC URINE NONE SEEN /hpf (0-2)
[2024-09-02] MEDS ORDERED: INSULIN LISPRO 100 UNITS/ML SUBCUT STA (04:37)
[2024-09-02] MEDS ORDERED: DEXTROSE 50% WATER 50ML SYRINGE IV PRN (04:45)
[2024-09-02 04:50] LABS: BASOPHILS % 1.1 % (0.0-2.0); EOSINOPHILS % 1.1 % (0.0-5.0); HEMATOCRIT. 35.8 % (36.0-48.0); HEMOGLOBIN. 11.4 g/dL (12.0-16.0); LYMPHOCYTES % 26.9 % (20.0-50.0); MEAN CORPUSCULAR HEMOGLOBIN 27.3 pg (28.0-32.0); MEAN CORPUSCULAR HGB CONC 31.9 g/dL (31.0-37.0); MEAN CORPUSCULAR VOLUME 85.5 fL (81.0-99.0); MEAN PLATELET VOLUME 11.4 fl (7.4-10.4); MONOCYTES % 9.3 % (2.0-8.0); NEUTROPHILS % 61.6 % (40.0-76.0); PLATELET 114 x1000/uL (130-400); RED BLOOD CELL COUNT 4.19 mill/uL (4.2-5.4); RED CELL DISTRIBUTION WIDTH 13.8 % (11.6-14.6)
[2024-09-02 05:16] LABS: CARBON DIOXIDE 24 mEq/L (21-32); CHLORIDE 105 mEq/L (98-107); POTASSIUM 4.4 mEq/L (3.5-5.1); SODIUM 137 mEq/L (136-145)
[2024-09-02 05:16] LABS: BG DEOXYHEMOGLOBIN 52.9 % (0.0-5.0)
[2024-09-02 05:17] LABS: CALCIUM 8.8 mg/dL (8.7-10.4)
[2024-09-02] MEDS: INSULIN LISPRO 100 UNITS/ML SUBCUT SCH (05:18)
[2024-09-02 05:22] LABS: CREATININE 1.1 mg/dL (0.6-1.0); UREA NITROGEN BLOOD 16 mg/dL (9-23)
[2024-09-02 05:23] LABS: ALANINE AMINOTRANSFERASE 18 IU/L (10-49)
[2024-09-02 05:24] LABS: ALBUMIN 3.8 g/dL (3.2-4.8); ASPARTATE AMINOTRANSFERASE 22 IU/L (<34); BETA HYDROXYBUTYRATE 0.1 mMol/L (0.0-0.3); BILIRUBIN DIRECT 0.1 mg/dL (<=3.0); BILIRUBIN TOTAL 0.4 mg/dL (0.1-1.0)
[2024-09-02 05:28] LABS: PROTHROMBIN TIME 10.8 sec (9.6-11.0)
[2024-09-02 05:38] LABS: GLUCOSE 469 mg/dL (70-105)
[2024-09-02 06:07] VITALS: BP 106/57; PULSE 76; RESP 21; TEMP 36.8; O2SAT 100
[2024-09-02 06:23] VITALS: TEMP 98.3
[2024-09-02] MEDS: ACETAMINOPHEN 325MG TABLET PO ONE (06:23)
[2024-09-02] MEDS ORDERED: BLOOD SUGAR DIAGNOSTIC STRIP TEST SCH (09:00)
== END 2024-09-02 06:27 | disposition home or self-care (01) ==
LOC: ER 23:46
DX: E11.65 Type 2 diabetes mellitus with hyperglycemia (principal); I10 Essential (primary) hypertension; Z79.82 Long term (current) use of aspirin; Z88.2 Allergy status to sulfonamides; Z79.899 Other long term (current) drug therapy
CPT/HCPCS: 99285; 96360; 71045; 80076; 80048; 81003; 82010; 82962; 85025; 85610; 36415; 82375; 82803; J1815; J7030; 96372